=== PATIENT | female | born 1970 | race Caucasian/White ===

== ENCOUNTER 2019-05-26 03:18 | Inpatient (IN) | payer OTHER ==
--- OUTSIDE RECORDS SUMMARY | 2019-05-26 03:20 | XMS REPORT ---
:1970 [facility] Address [address] [place] [address] Dr. Lee [address] [place] [id number] Care Team Providers Name Role Phone Unavailable Unavailable Unavailable Problems This patient has no known problems. Allergies, Adverse Reactions, Alerts This patient has no known allergies or adverse reactions. Medications This patient has no known medications.
[2019-05-26] MEDS ORDERED: NA CHLORIDE 0.9% 2,000 ML ONE (03:51)
[2019-05-26] MEDS ORDERED: ONDANSETRON 4 MG/2 ML VIAL ONE (03:51)
[2019-05-26] MEDS ORDERED: MORPHINE 2 MG/ML SYR ONE ×2 (03:51→05:50)
[2019-05-26] MEDS ORDERED: ACETAMINOPHEN 500 MG TAB ONE (03:53)
[2019-05-26 04:24] LABS: Absolute Lymphocytes (CBC) 0.3 K/uL (0.7-4.9); Basophils % 0.2 % (0-1.3); Hematocrit 39.6 % (36.0-45.0); Lymphocytes % 2.5 % (15.3-44.8); MPV 8.6 fL (7.6-11.3); RBC Red Blood Cell Count 4.67 M/uL (3.86-4.86)
[2019-05-26 04:29] LABS: Potassium 3.5 mmol/L (3.5-5.1)
[2019-05-26 04:51] LABS: Blood Morphology Comment NOT SEEN (NOT SEEN); Platelet Estimate ADEQ; Urine White Blood Cell Casts OK
[2019-05-26 05:18] LABS: Urine Bacteria >50 /HPF (<20)
[2019-05-26 05:19] LABS: Urine Culture Reflex Order NOT NEEDED
[2019-05-26 05:20] LABS: Urine Blood 3+ (NEG); Urine Glucose NEGATIVE (NEG); Urine Protein 2+ (NEG); Urine Specific Gravity 1.015 (1.005-1.030); Urine pH 5.5 (5.0-7.0)
--- NOTE | 2019-05-26 05:40 | ER ---
Nurse's Notes [facility] Name: Shanice Maradiaga Age: 48 yrs Sex: Female : 1970 Arrival Date: 05/26/2019 Time: 03:18 Bed 5 Private MD: Diagnosis: Right renal stone. Fever. Urinary tract infection. Leukocytosis Presentation: 05/26 03:28 Presenting complaint: Patient states: "I am running a bad fever and I am having kidney jd3 stone problems with pain to my right side. I had a procedure done on 05/16/[address] Sheets and we did x-rays on Wednesday and he said I will have to have the repeat procedure to break up the stones again on 06/06/19. The fever started last night.". Transition of care: patient was not received from another setting of care. Onset of symptoms was May 26, 2019. Risk Assessment: Do you want to hurt yourself or someone else? Patient reports no desire to harm self or others. Initial Sepsis Screen: Does the patient meet any 2 criteria? HR > 90 bpm. No. Patient's initial sepsis screen is negative. Does the patient have a suspected source of infection? No. Patient's initial sepsis screen is negative. Care prior to arrival: None. 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 - Social history:: Smoking status: Patient/guardian denies using tobacco, but has a distant history of tobacco abuse. - Ebola Screening: : Patient negative for fever greater than or equal to 101.5 degrees Fahrenheit, and additional compatible Ebola Virus Disease symptoms. Screenin:35 Abuse screen: Denies threats or abuse. Nutritional screening: No deficits noted. jd3 Tuberculosis screening: No symptoms or risk factors identified. Fall Risk Ambulatory Aid- None/Bed Rest/Nurse Assist (0 pts). Gait- Normal/Bed Rest/Wheelchair (0 pts) Mental Status- Oriented to own ability (0 pts). Total Chau Fall Scale indicates No Risk (0-24 pts). Assessment: 03:33 General: Appears in no apparent distress. uncomfortable, Behavior is calm, cooperative, jd3 appropriate for age. Pain: Complains of pain in posterior aspect of right lateral abdomen Quality of pain is described as sharp. Neuro: Level of Consciousness is awake, alert, obeys commands, Oriented to person, place, time, situation. Cardiovascular: Capillary refill < 3 seconds Patient's skin is warm and dry. Respiratory: Airway is patent Respiratory effort is even, unlabored, Respiratory pattern is regular, symmetrical, Denies cough, shortness of breath. GI: Abdomen is round non-distended, Patient currently denies diarrhea, nausea, vomiting. : Reports pain in right flank(s). EENT: No signs and/or symptoms were reported regarding the EENT system. Derm: Skin is intact, Skin is dry, Skin is normal, Skin temperature is warm. Musculoskeletal: Circulation, motion, and sensation intact. Range of motion: intact in all extremities. 04:30 Reassessment: Patient appears in no apparent distress at this time. No changes from jd3 previously documented assessment. Patient and/or family updated on plan of care and expected duration. Pain level reassessed. Patient is alert, oriented x 3, equal unlabored respirations, skin warm/dry/pink. 05:00 Reassessment: assisted pt to restroom using wheelchair. jd3 05:28 Reassessment: Patient appears in no apparent distress at this time. Patient and/or jd3 family updated on plan of care and expected duration. Pain level reassessed. Patient is alert, oriented x 3, equal unlabored respirations, skin warm/dry/pink. Patient states feeling better. 05:57 Reassessment: pt reported returning pain, medicated as ordered. jd3 06:17 Reassessment: Patient appears in no apparent distress at this time. Patient and/or jd3 family updated on plan of care and expected duration. Pain level reassessed. Patient is alert, oriented x 3, equal unlabored respirations, skin warm/dry/pink. assisted pt to bedside toilet. awaiting room assignment. Patient states feeling better. Vital Signs: 03:32 BP 141 / 65; Pulse 121; Resp 20 S; Temp 100.9(O); Pulse Ox 97% on R/A; Weight 81.65 kg jd3 (R); Height 5 ft. 4 in. (162.56 cm) (R); Pain 7/10; 05:28 BP 118 / 58; Pulse 100; Resp 19 S; Temp 100.8(O); Pulse Ox 95% on R/A; Pain 3/10; jd3 06:18 BP 115 / 70; Pulse 75; Resp 17 S; Pulse Ox 100% on R/A; jd3 03:32 Body Mass Index 30.90 (81.65 kg, 162.56 cm) jd3 ED Course: 03:18 Patient arrived in ED. ds1 03:26 Ramin Sparks MD is Attending Physician. pkl 03:28 Ori Lal RN is Primary Nurse. jd3 03:32 Triage completed. jd3 03:32 Arm band placed on. jd3 03:35 Patient has correct armband on for positive identification. Bed in low position. Call j light in reach. Side rails up X2. Adult w/ patient. 04:10 Inserted saline lock: 20 gauge in left antecubital area, using aseptic technique. Blood oe collected. 05:37 Juan Rodriguez MD is Hospitalizing Provider. pkl 06:29 No provider procedures requiring assistance completed. Patient admitted, IV remains in jd3 place. Administered Medications: 04:13 Drug: NS 0.9% 1000 ml Route: IV; Rate: 1000 ml; Site: left antecubital; jd3 05:55 Follow up: Response: No adverse reaction; IV Status: Completed infusion; IV Intake: jd3 1000ml 04:13 Drug: NS 0.9% 1000 ml Route: IV; Rate: 125 ml/hr; Site: left antecubital; jd3 06:24 Follow up: Response: No adverse reaction; IV Status: Infusion continued upon admission jd3 04:14 Drug: morphine 2 mg Route: IVP; Site: left antecubital; jd3 05:14 Follow up: Response: No adverse reaction; RASS: Alert and Calm (0) jd3 04:14 Drug: Zofran 4 mg Route: IVP; Site: left antecubital; jd3 05:14 Follow up: Response: No adverse reaction jd3 04:14 Drug: Tylenol 1000 mg Route: PO; jd3 05:14 Follow up: Response: No adverse reaction jd3 05:47 Drug: LevaQUIN 750 mg Volume: 150 ml; Route: IVPB; Infused Over: 90 mins; Site: left jd3 antecubital; 06:30 Follow up: Response: No adverse reaction; IV Status: Infusion continued upon admission jd3 05:55 Drug: morphine 2 mg Route: IVP; Site: left antecubital; jd3 06:30 Follow up: Response: No adverse reaction; RASS: Alert and Calm (0) jd3 Intake: 05:55 IV: 1000ml; Total: 1000ml. jd3 Outcome: 05:40 Decision to Hospitalize by Provider. pkl 06:29 Admitted to Med/surg accompanied by nurse, via wheelchair, room 413, with chart, Report jd3 called to Samuel ARELLANO 06:29 Condition: stable 06:29 Instructed on the need for admit, Demonstrated understanding of instructions. 06:30 Patient left the ED. jd3 Signatures: Ramin Sparks MD MD pkl Ghada Yeung ds1 Ben Ruiz Jonathon, RN RN jd3
--- NOTE | 2019-05-26 05:40 | EDPHYS ---
Physician Documentation [facility] Name: Shanice Maradiaga Age: 48 yrs Sex: Female : 1970 Arrival Date: 05/26/2019 Time: 03:18 Bed 5 Private MD: ED Physician Rmain Sparks HPI: 05/26 03:48 This 48 yrs old Female presents to ER via Wheelchair with complaints of Fever.pkl 03:48 The patient complains of pain in the right flank. The pain radiates to the right lower pkl quadrant. Onset: The symptoms/episode began/occurred just prior to arrival, 6 hour(s) ago. Associated signs and symptoms: Pertinent positives: fever, chills. Patient had lithotripsy about 10 days ago for her right kidney stone by Dr. Sheets. Had follow up X' rays [address] Sheets and was told she needed another lithotripsy on 06/06 19. 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 - Social history:: Smoking status: Patient/guardian denies using tobacco, but has a distant history of tobacco abuse. - Ebola Screening: : Patient negative for fever greater than or equal to 101.5 degrees Fahrenheit, and additional compatible Ebola Virus Disease symptoms. ROS: 04:01 Eyes: Negative for injury, pain, redness, and discharge, ENT: Negative for injury, pkl pain, and discharge, Neck: Negative for injury, pain, and swelling, Cardiovascular: Negative for chest pain, palpitations, and edema, Respiratory: Negative for shortness of breath, cough, wheezing, and pleuritic chest pain, Abdomen/GI: Negative for abdominal pain, nausea, vomiting, diarrhea, and constipation. 04:01 Back: Positive for flank pain, on the right. 04:01 : Negative for urinary symptoms. 04:01 MS/extremity: Negative for acute changes. 04:01 Skin: Negative for rash. 04:01 Neuro: Negative for altered mental status. Exam: 04:01 Head/Face: Normocephalic, atraumatic. Eyes: Pupils equal round and reactive to light, pkl extra-ocular motions intact. Lids and lashes normal. Conjunctiva and sclera are non-icteric and not injected. Cornea within normal limits. Periorbital areas with no swelling, redness, or edema. ENT: Nares patent. No nasal discharge, no septal abnormalities noted. Tympanic membranes are normal and external auditory canals are clear. Oropharynx with no redness, swelling, or masses, exudates, or evidence of obstruction, uvula midline. Mucous membranes moist. Neck: Trachea midline, no thyromegaly or masses palpated, and no cervical lymphadenopathy. Supple, full range of motion without nuchal rigidity, or vertebral point tenderness. No Meningismus. Chest/axilla: Normal chest wall appearance and motion. Nontender with no deformity. No lesions are appreciated. Cardiovascular: Regular rate and rhythm with a normal S1 and S2. No gallops, murmurs, or rubs. Normal PMI, no JVD. No pulse deficits. Respiratory: Lungs have equal breath sounds bilaterally, clear to auscultation and percussion. No rales, rhonchi or wheezes noted. No increased work of breathing, no retractions or nasal flaring. Abdomen/GI: Soft, non-tender, with normal bowel sounds. No distension or tympany. No guarding or rebound. No evidence of tenderness throughout. 04:01 Back: pain, that is moderate, of the right flank. 04:01 : Exam negative for acute changes. 04:01 Musculoskeletal/extremity: Exam is negative for acute changes. 04:01 Skin: Exam negative for rash. 04:01 Neuro: Orientation: is normal, Mentation: is normal, Cranial nerves: grossly normal, Motor: is normal. Vital Signs: 03:32 BP 141 / 65; Pulse 121; Resp 20 S; Temp 100.9(O); Pulse Ox 97% on R/A; Weight 81.65 kg jd3 (R); Height 5 ft. 4 in. (162.56 cm) (R); Pain 7/10; 05:28 BP 118 / 58; Pulse 100; Resp 19 S; Temp 100.8(O); Pulse Ox 95% on R/A; Pain 3/10; jd3 06:18 BP 115 / 70; Pulse 75; Resp 17 S; Pulse Ox 100% on R/A; jd3 03:32 Body Mass Index 30.90 (81.65 kg, 162.56 cm) jd3 MDM: 03:26 Patient medically screened. pkl 05:36 Data reviewed: vital signs, nurses notes, lab test result(s), radiologic studies, plain pkl films. ED course: Talked to Dr. Sheets. To admit to hospitalist. 05/26 03:44 Order name: CBC with Diff pkl 05/26 03:44 Order name: Chem 7 pkl 05/26 03:44 Order name: Blood Culture Adult (2) pkl 05/26 04:04 Order name: Lactate pkl 05/26 04:25 Order name: CBC with Automated Diff; Complete Time: 04:52 EDMS 05/26 04:29 Order name: Basic Metabolic Panel; Complete Time: 04:45 EDMS 05/26 03:44 Order name: XRAY Abdomen 1 View (KUB) pkl 05/26 04:44 Order name: Lactate; Complete Time: 04:45 EDMS 05/26 04:51 Order name: CBC Smear Scan; Complete Time: 04:52 EDMS 05/26 05:00 Order name: Urine Culture rr5 05/26 05:00 Order name: Urine Microscopic Only [facility] 05/26 05:10 Order name: Urine Dipstick--Ancillary (enter results) ga 05/26 05:19 Order name: Urine Microscopic Only; Complete Time: 05:26 EDMS 05/26 05:20 Order name: Urine Dipstick-Ancillary; Complete Time: 05:26 EDMS Administered Medications: 04:13 Drug: NS 0.9% 1000 ml Route: IV; Rate: 1000 ml; Site: left antecubital; jd3 05:55 Follow up: Response: No adverse reaction; IV Status: Completed infusion; IV Intake: jd3 1000ml 04:13 Drug: NS 0.9% 1000 ml Route: IV; Rate: 125 ml/hr; Site: left antecubital; jd3 06:24 Follow up: Response: No adverse reaction; IV Status: Infusion continued upon admission jd3 04:14 Drug: morphine 2 mg Route: IVP; Site: left antecubital; jd3 05:14 Follow up: Response: No adverse reaction; RASS: Alert and Calm (0) jd3 04:14 Drug: Zofran 4 mg Route: IVP; Site: left antecubital; jd3 05:14 Follow up: Response: No adverse reaction jd3 04:14 Drug: Tylenol 1000 mg Route: PO; jd3 05:14 Follow up: Response: No adverse reaction jd3 05:47 Drug: LevaQUIN 750 mg Volume: 150 ml; Route: IVPB; Infused Over: 90 mins; Site: left jd3 antecubital; 06:30 Follow up: Response: No adverse reaction; IV Status: Infusion continued upon admission jd3 05:55 Drug: morphine 2 mg Route: IVP; Site: left antecubital; jd3 06:30 Follow up: Response: No adverse reaction; RASS: Alert and Calm (0) jd3 Disposition: 05/26/19 05:40 Hospitalization ordered by Juan Rodriguez for Inpatient Admission. Preliminary diagnosis is Right renal stone. Fever. Urinary tract infection. Leukocytosis. - Bed requested for Telemetry/MedSurg (Inpatient). - Status is Inpatient Admission. jd3 - Condition is Stable. - Problem is new. - Symptoms are unchanged. UTI on Admission? Yes Signatures: Dispatcher [employer] EDSC Fannie Campbell RN RN Ramin Sparks MD MD pkl Davies, Jonathon, RN RN jd3 Botello, Elizabeth eb Corrections: (The following items were deleted from the chart) 06:05 05:40 Hospitalization Ordered by Juan Rodriguez MD for Inpatient Admission. Preliminary eb diagnosis is Right renal stone. Fever. Urinary tract infection. Leukocytosis. Bed requested for Telemetry/MedSurg (Inpatient). Status is Inpatient Admission. Condition is Stable. Problem is new. Symptoms are unchanged. UTI on Admission? Yes. pkl 06:17 06:05 05/26/2019 05:40 Hospitalization Ordered by Juan Rodriguez MD for Inpatient Admission. Preliminary diagnosis is Right renal stone. Fever. Urinary tract infection. Leukocytosis. Bed requested for Telemetry/MedSurg (Inpatient). Status is Inpatient Admission. Condition is Stable. Problem is new. Symptoms are unchanged. UTI on Admission? Yes. eb 06:30 06:17 05/26/2019 05:40 Hospitalization Ordered by Juan Rodriguez MD for Inpatient jd3 Admission. Preliminary diagnosis is Right renal stone. Fever. Urinary tract infection. Leukocytosis. Bed requested for Telemetry/MedSurg (Inpatient). Status is Inpatient Admission. Condition is Stable. Problem is new. Symptoms are unchanged. UTI on Admission? Yes. mw
[2019-05-26] MEDS ORDERED: Levofloxacin 750mg IV 750 MG/150 ML BAG IV ONE (05:43)
[2019-05-26] MEDS ORDERED: ONDANSETRON 4 MG/2 ML VIAL IV PRN (06:09)
--- NOTE | 2019-05-26 06:17 | P.PN ---
Date of Service: 05/26/19 PT WITH renal calculus and UTI adm for stent chnage
[2019-05-26] MEDS ORDERED: Levofloxacin 750mg IV 750 MG/150 ML BAG IV SCH (07:00)
[2019-05-26] MEDS ORDERED: D5.45NS W/KCL 20MEQ 1,000 ML IV SCH (07:00)
[2019-05-26 07:13] VITALS: BMI 30.9
--- NOTE | 2019-05-26 08:13 | RAD REPORT ---
EXAM DESCRIPTION: RAD - Abdomen 1 View (KUB) - 05/26/2019 4:30 am CLINICAL HISTORY: Abdomen pain. FINDINGS: The bowel gas pattern is unremarkable. Right ureteral stent in place. Right renal calculi are noted. Calcification along proximal and mid as pect of the right ureteral stent is not seen. 2 millimeter calcification lies adjacent to the distal aspect of the right ureteral stent which could represent a phlebolith or ureteral calculus. IUD is present in the pelvis
[2019-05-26] MEDS: HEPARIN 5000 UNIT/ML 1 ML VIAL SQ SCH ×2 (09:00→16:44)
[2019-05-26] MEDS: MORPHINE 4 MG/ML SYR IV PRN ×2 (09:06→13:07)
[2019-05-26] MEDS: TAMSULOSIN 0.4 MG SR CAP PO SCH (09:06)
[2019-05-26] MEDS: FAMOTIDINE 20 MG TAB PO SCH ×2 (09:06→20:45)
[2019-05-26] MEDS: ACETAMINOPHEN 325 MG TABLET PO PRN (11:54)
[2019-05-26] MEDS ORDERED: clonazePAM 0.5 MG TAB PO PRN (12:34)
[2019-05-26] MEDS: D5.45NS W/KCL 40MEQ 40 MEQ/1,000 ML BAG IV SCH ×2 (12:59→20:54)
[2019-05-26] MEDS ORDERED: IBUPROFEN 400 MG TAB PO PRN (15:20)
--- NOTE | 2019-05-26 16:18 | HP ---
Date of Admission: 05/26/2019 Presenting Complaint: Fever and bilateral flank pain. History Of Present Illness: Ms. Maradiaga is a 48-year-old female with past medical history of anxiety/depression disorder, who was admitted for right ureteral calculus 2 weeks ago and underwent lithotripsy as well as stent placement. The patient developed recurrent bilateral flank pain associa vesna with new onset fever and chills, and nausea since the last 1 day. She states she was seen in the outpatient clinic 3 days ago and a repeat imaging has suggested that she needed further ureteroscopy done, which was scheduled for next week. On development of symptoms today, she had called her urolo gist and was advised to come to the hospital. On presentation in the ED, she was noted with a fever of 100.9 as well as elevated leukocytosis. The patient is being admitted and Urology was consulted w ho recommended admission for a scheduled repeat ureteroscopy and stent exchange. The patient has bee n admitted to the medical service. Past Medical History: Significant for anxiety disorder. Home Medications: Include Flomax, sertraline, and p.r.n. Ativan. Allergies: NO KNOWN DRUG ALLERGY. Social History: Patient resides in the community. She is a former smoker. No history of alcohol or illicit drug use. Family History: No history of CAD or kidney stones or mass. Past Surgical History: Recent right ureteral stent placement. Review of Systems: All systems reviewed x14 were negative except as mentioned above. Physical Examination: Current Vitals: Blood pressure of 123/75, pulse of 98, respiratory rate of 18, O2 saturation 95% on room air, temperature 100.9. General: Overweight middle-aged female, lying in bed, not in any pain or distress. HEENT: Head is atraumatic, normocephalic. Pupils equal, reactive to light. Extraocular motor movem ent intact. Neck: No JVD. No carotid bruit. Respiratory: Good air entry bilaterally. No crepitation. Cardiovascular: S1, S2. Rate and rhythm regular. GI: Abdomen is full and soft. Bowel sounds positive. Mild tenderness of bilateral CV angles. No s uprapubic fullness or tenderness. EXTREMITIES: No pedal edema. No calf tenderness. NEURO: Patient is alert and conversant. Laboratory Data: WBC 14,000, hemoglobin 13, platelets 205. Sodium 135, potassium 3.5, bicarb 26, BU N 11, creatinine 1.04. Lactic acid 1.0. Urinalysis; 10 to 20 rbc, but 3+ leukocyte esterase and gre ater than 50 bacteria with too numerous to count WBC. KUB, official read is pending. Blood cultures x2 obtained. Impression: 1.Persistent right obstructing renal calculus. 2.Urinary tract infection due to obstructive renal calculus. 3.History of anxiety disorder. Plan: We will admit patient to observation. We will consult . We will start patient on gentle IV hydration. We will replace potassium. We will start empirical antibiotics with Levaquin. We will do heparin subcutaneous for DVT prophylaxis. We will keep n.p.o. for now until post planned procedur e. We will do Zofran. We will also start patient on low-dose Flomax to aid stone excretion. Expected hospital stay for less than 24 to 48 hours. Advanced directives. Patient is a full code. Total time spent, discussion with patient, and evaluation greater than 55 minutes. EO/MODL Voice ID: [id number]
[2019-05-26] MEDS: HYDROCODONE/APAP 10/325 TAB PO PRN (17:05)
--- NOTE | 2019-05-26 18:42 | PN ---
Date of Progress Note: 05/26/2019 Subjective: Patient seen and examined. Chart reviewed and case discussed with RN. Patient is still having some pain, feels generalized malaise, and uncomfortable. Spiked fever later this afternoon, Medications: List reviewed. Physical Examination: Vital Signs: T-max 101.3, heart rate 89, blood pressure 104/52, respirations 16 , O2 of 95% on room air. General: Awake, alert, oriented x3. Some mild distress, obese female, ill- appearing. CV: S1, S2. Regular rate and rhythm. Peripheral pulses present. Respiratory: Moving air well bilaterally. No wheezing or stridor. No use of accessory muscles. Gastrointestinal: Abdomen is soft, nontender, nondistended. Positive bowel sounds. Extremities: No clubbing, cyanosis, or edema. Neuro: Cranial nerves 2 through 12 intact grossly. No focal neurological deficit. Speech is normal. Laboratory Data: Sodium 135, potassium 3.5, chloride 101, CO2 of 26, BUN 11, creatinine 1.04, glucose 121, lactate 1, calcium 8.9. WBC 14.4, H and H 13.4 and 39.6, platelets 205, neutrophils 91%. KUB x-ray shows right ureteral stent in place. Right renal calculi noted. Calcification along the proximal and mid aspect of the right ureteral stent is not seen. 2 mm calcification lies adjacent to the distal aspect of the right ureteral stent, which could represent a phlebolith or ureteral calculus. IUD is present in the pelvis. Assessment: 1. Recurrent right ureteral stone s/p stent. Urology on board, may need to be replaced. 2. Acute cystitis with hematuria likely due to stone. We will continue with IV antibiotics. Patient did spike high fever this morning. We will follow up on urine culture and blood cultures. 3. Obesity, BMI 30.9. 4. Leukocytosis w neutrophilia. Secondary to UTI Plan: Continue IV antibiotics and likely discharge in the next 24 to 48 hours depending on clinical response. /MODL Voice ID: [id number] Report ID: [id number] IDALIA
[2019-05-26] MEDS: CEFTRIAXONE/SWI 1gm 1 GM/10 ML SYR IVP SCH (20:45)
[2019-05-27] MEDS: HEPARIN 5000 UNIT/ML 1 ML VIAL SQ SCH ×3 (01:28→16:39)
[2019-05-27] MEDS: HYDROCODONE/APAP 10/325 TAB PO PRN ×2 (04:19→19:56)
[2019-05-27 06:29] LABS: Absolute Lymphocytes (CBC) 0.9 K/uL (0.7-4.9); Basophils % 0.4 % (0-1.3); Lymphocytes % 6.9 % (15.3-44.8); MPV 9.6 fL (7.6-11.3)
[2019-05-27 06:33] LABS: Albumin 2.7 g/dL (3.4-5.0); Bilirubin Total 0.4 mg/dL (0.2-1.0); Potassium 3.7 mmol/L (3.5-5.1); Protein, Total 6.2 g/dL (6.4-8.2)
[2019-05-27] MEDS: Levofloxacin 750mg IV 750 MG/150 ML BAG IV SCH (08:00)
[2019-05-27] MEDS: D5.45NS W/KCL 40MEQ 40 MEQ/1,000 ML BAG IV SCH ×2 (08:50→17:35)
[2019-05-27] MEDS: TAMSULOSIN 0.4 MG SR CAP PO SCH (08:52)
[2019-05-27] MEDS: SERTRALINE HCL 100 MG TAB PO SCH (08:52)
[2019-05-27] MEDS: CEFTRIAXONE/SWI 1gm 1 GM/10 ML SYR IVP SCH ×2 (08:52→19:56)
[2019-05-27] MEDS: FAMOTIDINE 20 MG TAB PO SCH ×2 (08:52→19:56)
[2019-05-27] MEDS: ACETAMINOPHEN 325 MG TABLET PO PRN (10:54)
--- NOTE | 2019-05-27 11:40 | PN ---
Subjective: Patient is feeling better than yesterday. She is on IV Rocephin and Levaquin. Objective: Vital Signs: 98.3, 72, 17, 101/48, sats 95%. Laboratory Data: Shows that her white count is down from 14 to 12.5 today, H and H is 10 and 30, sli ghtly down most likely due to hydration. Platelet count 174. I's and O's show total intake 1450, to tesfaye output 1200 over the shift. Plan: Continue management. Urine culture growing staph 10 to 5th with the final culture to come rodger k tomorrow and adjust her antibiotics after that. Hopefully, she can go home tomorrow thank you. VANITA/NELLI Voice ID: [id number] Report ID: [id number]
--- NOTE | 2019-05-27 20:15 | PN ---
Date of Progress Note: 05/27/2019 Subjective: Patient is seen and examined. Chart reviewed and case discussed with RN. Patient still not feeling, back to her usual self. Complains of generalized malaise. Medication List: Reviewed. Physical Examination: Vital Signs: Temperature 98.3, heart rate 72, blood pressure 101/48, respirations 17, O2 saturation 95% on room air. General: Awake, alert, and oriented x3. Obese female in some mild distress. CV: S1, S2. Regular rate and rhythm. Peripheral pulses present. Respiratory: Moving air well bilaterally. No wheezing or stridor. No use of accessory muscles. Gastrointestinal: Abdomen is soft, nontender, nondistended. Positive bowel sounds. Extremities: No clubbing, cyanosis, or edema. Neurologic: Nonfocal. Laboratory Data: Sodium 137, potassium 3.7, chloride 107, CO2 of 26, BUN 6, creatinine 0.76, glucose 118. Calcium 8. Albumin 2.7. WBC 12.5, hemoglobin and hematocrit 10.6 and 30, platelets 174, neutrophils 85%. Urine culture growing out beta-hemolytic strep. Blood cultures, no growth to date. Assessment: 1. Acute cystitis with hematuria secondary to beta-hemolytic strep. We will continue with IV antibiotics. Appreciate Dr. Sheets's input. 2. Right ureteral recurrent stone s/p stent. 3. Obesity. BMI 30.9. 4. Hyperglycemia. No history of diabetes. We will check hemoglobin A1c if continues; likely secondary to the D5 half NS. Plan: Continue DVT prophylaxis with heparin. Monitor final culture results. Likely discharge in the next 24 to 48 hours depending on clinical response. Patient still has elevated white blood cell count, currently hypotensive. SA/MODL Voice ID: [id number] Report ID: [id number] IDALIA
[2019-05-28] MEDS: HEPARIN 5000 UNIT/ML 1 ML VIAL SQ SCH ×2 (00:35→08:27)
[2019-05-28] MEDS: ACETAMINOPHEN 325 MG TABLET PO PRN ×2 (00:42→08:25)
[2019-05-28 05:10] LABS: Absolute Lymphocytes (CBC) 2.7 K/uL (0.7-4.9); Basophils % 0.9 % (0-1.3); Hematocrit 32.7 % (36.0-45.0); Lymphocytes % 21.4 % (15.3-44.8); MPV 9.6 fL (7.6-11.3); RBC Red Blood Cell Count 3.85 M/uL (3.86-4.86)
[2019-05-28 05:23] LABS: Potassium 4.1 mmol/L (3.5-5.1)
[2019-05-28 05:34] LABS: Urine White Blood Cell Casts OK
[2019-05-28 05:35] LABS: Blood Morphology Comment NOT SEEN (NOT SEEN); Platelet Estimate ADEQ
[2019-05-28] MEDS: Levofloxacin 750mg IV 750 MG/150 ML BAG IV SCH (08:00)
[2019-05-28] MEDS: SERTRALINE HCL 100 MG TAB PO SCH (08:26)
[2019-05-28] MEDS: D5.45NS W/KCL 40MEQ 40 MEQ/1,000 ML BAG IV SCH (08:27)
[2019-05-28] MEDS: FAMOTIDINE 20 MG TAB PO SCH (08:27)
[2019-05-28] MEDS: CEFTRIAXONE/SWI 1gm 1 GM/10 ML SYR IVP SCH (08:27)
[2019-05-28] MEDS: TAMSULOSIN 0.4 MG SR CAP PO SCH (08:27)
[2019-05-28 08:28] VITALS: BP 91/46; TEMP 97.4
[2019-05-28 08:41] VITALS: O2SAT 97
--- NOTE | 2019-05-29 05:26 | DS ---
Date of Discharge: 05/28/2019 Consultants: Dr. Sheets with Urology. Admitting Diagnoses: 1.Persistent right obstructing renal calculus. 2.Urinary tract infection secondary to obstructive renal calculus. 3.History of anxiety disorder. Discharge Diagnoses: 1.Acute cystitis with hematuria secondary to beta-hemolytic strep. 2.Right ureteral stone,status post stent on previous admission. 3.Hyperglycemia. No history of diabetes, likely due to D5 half NS. 4.Obesity, BMI 30. Hospital Course: The patient is a 48-year-old female who was admitted to the hospital for fever and bilateral flank pain. Patient recently had ureteral calculus 2 weeks ago and had lithotripsy as well as stent placement. Patient continued to have high fevers, elevated white blood cell count, and sym ptoms. Therefore, patient was admitted to the hospital and Dr. Sheets with Urology was consulted. Nathan varela was started on IV antibiotics and IV fluids. Flomax was also given. X-ray showed persistent r enal calculi. Patient's UA was positive and urine culture grew out [id number] strep. Blood cultures were negative. Her white blood cell count overall trended down, still somewhat elevated at 12.7; however, no further signs of sepsis. Patient was afebrile. She was back to her baseline, did not have any further flank pain. Patient was then cleared for discharge from Urology standpoint and was sent home in a stable condition. Activity: As tolerated. Medications: As per medication reconciliation list. Followup: Follow up with primary care physician in 2-3 days. Follow up with urologist, Dr. Sheets's in 2 weeks and subsequent stent removal. Return to ER for worsening condition. Diet: Calorie-restricted diet. Activity: As tolerated. Physical Examination: General: Awake, alert, oriented x3. No acute distress. CV: S1, S2. Respiratory: Moving air well bilaterally. GI: Abdomen is soft, nontender, nondistended. Positive bowel sounds. Extremities: No clubbing, cyanosis, edema. Neurologic: Nonfocal. Total time spent discharging the patient was 38 minutes. SA/MODL Voice ID: [id number] Report ID: [id number]
--- NOTE | 2019-05-29 09:18 | CON ---
History Of Present Illness: She is a pleasant 48-year-old female, who had a 10 mm and a 4 mm in the right renal pelvis. She underwent a right extracorporeal shock wave lithotripsy and placement of a 6 -E[place] x 26 cm double-J stent 2 weeks ago. On followup on May 22, 2019 showed multiple small s tones in the right renal pelvis, likely possible . Therefore, we left the stent in place a nd decided to schedule her for second ESWL on June 06. She was given samples of Toviaz 4 mg fo r 3-week supply, so she can return to work until June 06 surgery performed. She was doing well until last night when she temperature of 104 and was called at about 1 a.m. She was brou ght to the emergency room to be admitted. She was admitted, blood cultures and urine cultures perfor med. KUB performed showing location. Her white count was slightly elevated to 14,000. S he was placed on IV Levaquin and actually still not feeling that well, so I am going to add IV Roceph in to the management to current medications. Increased her potassium to 40 mEq and IV fluids since h er potassium is borderline low, which can cause kidney stones and hydrate her more to 125 mL/hour and give her regular diet. Past Medical History: None. Past Surgical History: Cholecystectomy, laparoscopy. Family History: Noncontributory. Immunizations: Up-to-date. Social History: Tobacco, she quit smoking in April 2015. No alcohol. No drug use. Physical Examination: Vital Signs: , temperature 99.9, respiratory rate 16, BP 97/48, 95% saturation on room air . Pain level was 2/10. HEENT: Atraumatic, normocephalic. Lungs: Clear. Heart: S1, S2. Abdomen: Soft, nontender. Extremities: Normal range of motion. Laboratory Data: White count 14,100, H and H is 13 and 39, platelet count 205. Chemistries show sod ium 135, potassium 3.5, chloride 101, carbon dioxide . Urine shows leukocyte esterase 2+, rbc's 10 to 20; white cells too numerous to count . Urine culture pending. Assessment And Plan: Urinary tract infection, status post ESWL and stent placement 2 weeks ago. Als o residual small stones in the renal pelvis that need further ESWL. She developed a high temperature of 104 last night and was brought in for IV antibiotics and cultures. Now she is resting , , stable on exam. So we will continue management. Await the urine culture to return ___ . In the meantime, I am going to go ahead and add IV Rocephin to the Levaquin righ t now. We will continue regular diet, increase her potassium and increase her hydration. PB/MODL Voice ID: [id number] Report ID: [id number]
== END 2019-05-28 11:18 | disposition home or self-care (01) | DRG 690 ==
LOC: ER 03:18 → ERHOLD 06:23 → 4TH 06:25 → OBSVTOIN 05-27 10:19
PROVIDERS: ADMIT Internal Medicine; ATTEND Family Medicine
DX: N30.01 Acute cystitis with hematuria (principal); N20.0 Calculus of kidney; F41.8 Other specified anxiety disorders; E66.9 Obesity, unspecified; R73.9 Hyperglycemia, unspecified; Z68.30 Body mass index [BMI] 30.0-30.9, adult
CPT/HCPCS: 36415; 74018; 80048; 80053; 81003; 81015; 82947; 83605; 85025; 87040; 87077; 87086; 87088; 87186; 96361; 96365; 96375; 99285; G0378; J0696; J1644; J2270; J2405; J7030